=== PATIENT | female | born 1995 | race Hispanic/Latino ===

== ENCOUNTER 2018-05-14 07:46 | Emergency (ER) | payer BC ==
[2018-05-14 08:23] LABS: Urine Blood 1+ (NEG); Urine Glucose NEGATIVE (NEG); Urine Protein 1+ (NEG)
--- NOTE | 2018-05-14 08:51 | EDPHYS ---
Physician Documentation [facility] Name: Deysi Castelan Age: 22 yrs Sex: Female : 1995 Arrival Date: 05/14/2018 Time: 07:50 Bed 15 Private MD: Out, of [facility], [facility] ED Physician Farhan Morales HPI: 05/14 08:36 This 22 yrs old Female presents to ER via Ambulatory with complaints of Flu jr8 Symptoms. 08:36 Patient stated that she has runny nose, sneezing, sinus congestion, fevers, body aches. jr8 Currently . Onset: The symptoms/episode began/occurred suddenly, 1 day(s) ago. Severity of symptoms: At their worst the symptoms were mild in the emergency department the symptoms are unchanged. The patient has not experienced similar symptoms in the past. The patient has not recently seen a physician. ELECTRICAL INTERN: 08:01 unknown, pt reports she is approx 11-12 weeks . ss Historical: - Allergies: 08:01 No Known Allergies; ss - Home Meds: 08:01 "supposed to take iron supplements three times a day" [Active]; ss - PMHx: 08:01 iron deficiency anemia; ss - PSHx: 08:01 None; ss - Immunization history:: Adult Immunizations up to date. - Social history:: Smoking status: Patient/guardian denies using tobacco. - Ebola Screening: : Patient denies exposure to infectious person Patient denies travel to an Ebola-affected area in the 21 days before illness onset. ROS: 08:36 Eyes: Negative for injury, pain, redness, and discharge, Neck: Negative for injury, jr8 pain, and swelling, Cardiovascular: Negative for chest pain, palpitations, and edema, Respiratory: Negative for shortness of breath, cough, wheezing, and pleuritic chest pain, Abdomen/GI: Negative for abdominal pain, nausea, vomiting, diarrhea, and constipation, Back: Negative for injury and pain, MS/Extremity: Negative for injury and deformity, Skin: Negative for injury, rash, and discoloration, Neuro: Negative for headache, weakness, numbness, tingling, and seizure. 08:36 Constitutional: Positive for body aches, chills, fever. 08:36 ENT: Positive for rhinorrhea, sinus congestion, sore throat, Negative for drainage from ear(s), ear pain, nasal discharge, difficulty swallowing, difficulty handling secretions, hoarseness. Exam: 08:36 Eyes: Pupils equal round and reactive to light, extra-ocular motions intact. Lids and jr8 lashes normal. Conjunctiva and sclera are non-icteric and not injected. Cornea within normal limits. Periorbital areas with no swelling, redness, or edema. ENT: Nares patent. No nasal discharge, no septal abnormalities noted. Tympanic membranes are normal and external auditory canals are clear. Oropharynx with no redness, swelling, or masses, exudates, or evidence of obstruction, uvula midline. Mucous membranes moist. Neck: Trachea midline, no thyromegaly or masses palpated, and no cervical lymphadenopathy. Supple, full range of motion without nuchal rigidity, or vertebral point tenderness. No Meningismus. Cardiovascular: Regular rate and rhythm with a normal S1 and S2. No gallops, murmurs, or rubs. Normal PMI, no JVD. No pulse deficits. Respiratory: Lungs have equal breath sounds bilaterally, clear to auscultation and percussion. No rales, rhonchi or wheezes noted. No increased work of breathing, no retractions or nasal flaring. Abdomen/GI: Soft, non-tender, with normal bowel sounds. No distension or tympany. No guarding or rebound. No evidence of tenderness throughout. Back: No spinal tenderness. No costovertebral tenderness. Full range of motion. Skin: Warm, dry with normal turgor. Normal color with no rashes, no lesions, and no evidence of cellulitis. MS/ Extremity: Pulses equal, no cyanosis. Neurovascular intact. Full, normal range of motion. Neuro: Awake and alert, GCS 15, oriented to person, place, time, and situation. Cranial nerves II-XII grossly intact. Motor strength 5/5 in all extremities. Sensory grossly intact. Cerebellar exam normal. Normal gait. Vital Signs: 08:01 BP 103 / 57; Pulse 114; Resp 14; Temp 99.2(O); Pulse Ox 99% on R/A; Weight 104.33 kg; ss Height 5 ft. 3 in. (160.02 cm); Pain 5/10; 09:00 BP 107 / 62; Pulse 111; Resp 20; Temp 99.6(O); Pulse Ox 99% on R/A; Pain 5/10; em 08:01 Body Mass Index 40.74 (104.33 kg, 160.02 cm) ss MDM: 07:55 Patient medically screened. jr8 08:36 Data reviewed: vital signs, nurses notes, lab test result(s), Flu: positive and as a jr8 result, I will discharge patient. Data interpreted: Pulse oximetry: on room air is 99 %. Interpretation: normal. Counseling: I had a detailed discussion with the patient and/or guardian regarding: the historical points, exam findings, and any diagnostic results supporting the discharge/admit diagnosis, lab results, the need for outpatient follow up, a family practitioner, an OB/Gyne specialist, to return to the emergency department if symptoms worsen or persist or if there are any questions or concerns that arise at home. 05/14 08:05 Order name: Flu; Complete Time: 08:50 ss 05/14 08:18 Order name: Urine Dipstick--Ancillary (enter results); Complete Time: 08:26 em1 05/14 08:05 Order name: Urine Dipstick-Ancillary (obtain specimen); Complete Time: 08:16 ss 05/14 08:05 Order name: Urine Test (obtain specimen); Complete Time: 08:16 ss 05/14 08:18 Order name: Urine --Ancillary (enter results); Complete Time: 08:26 em1 Administered Medications: 09:00 Drug: Tamiflu 75 mg Route: PO; em 09:00 Follow up: Response: Medication administered at discharge. em Disposition: 05/15 07:56 Co-signature as Attending Physician, Farhan Morales MD. Disposition: 05/14/18 08:50 Discharged to Home. Impression: Influenza due to certain identified influenza viruses. - Condition is Stable. - Discharge Instructions: Influenza, Adult. - Prescriptions for Tamiflu 75 mg Oral Capsule - take 1 capsule by ORAL route every 12 hours for 5 days; 10 capsule. Zofran 4 mg Oral Tablet - take 1 tablet by ORAL route every 12 hours As needed; 20 tablet. - Medication Reconciliation Form, Thank You Letter, Antibiotic Education, Prescription Opioid Use form. - Follow up: Private Physician; When: 1 week; Reason: Recheck today's complaints, Continuance of care, Re-evaluation by your physician. - Problem is new. - Symptoms are unchanged. Signatures: Dispatcher [employer] EDMS Reji Bro, SHELL GRADER SHELL GRADER em Erika Hunt RN RN Russell Salcido PA PA jr8 Farhan Morales MD MD gs Corrections: (The following items were deleted from the chart) 05/14 09:01 08:50 05/14/2018 08:50 Discharged to Home. Impression: Influenza due to certain em identified influenza viruses. Condition is Stable. Forms are Medication Reconciliation Form, Thank You Letter, Antibiotic Education, Prescription Opioid Use. Follow up: Private Physician; When: 1 week; Reason: Recheck today's complaints, Continuance of care, Re-evaluation by your physician. Problem is new. Symptoms are unchanged. jr8
--- NOTE | 2018-05-14 08:51 | ER ---
Nurse's Notes [facility] Name: Deysi Castelan Age: 22 yrs Sex: Female : 1995 Arrival Date: 05/14/2018 Time: 07:50 Bed 15 Private MD: Out, [facility] Diagnosis: Influenza due to certain identified influenza viruses Presentation: 05/14 07:58 Presenting complaint: Patient states: "I started sneezing yesterday and thought it was ss just allergies, but last night I started having a fever." pt also c/o body aches. Transition of care: patient was not received from another setting of care. Onset of symptoms was May 13, 2018. Risk Assessment: Do you want to hurt yourself or someone else? Patient reports no desire to harm self or others. Initial Sepsis Screen: Does the patient meet any 2 criteria? HR > 90 bpm. Does the patient have a suspected source of infection? No. Patient's initial sepsis screen is negative. Care prior to arrival: Tylenol last taken last night at 2230. 07:58 Method Of Arrival: Ambulatory 07:58 Acuity: PRINCE [address] CUTTER: 08:01 unknown, pt reports she is approx 11-12 weeks . ss Historical: - Allergies: 08:01 No Known Allergies; ss - Home Meds: 08:01 "supposed to take iron supplements three times a day" [Active]; ss - PMHx: 08:01 iron deficiency anemia; ss - PSHx: 08:01 None; ss - Immunization history:: Adult Immunizations up to date. - Social history:: Smoking status: Patient/guardian denies using tobacco. - Ebola Screening: : Patient denies exposure to infectious person Patient denies travel to an Ebola-affected area in the 21 days before illness onset. Screenin:02 Abuse screen: Denies threats or abuse. Denies injuries from another. Nutritional ss screening: No deficits noted. Tuberculosis screening: Never had TB. Fall Risk None identified. Assessment: 08:02 General: Appears in no apparent distress. comfortable, Behavior is calm, cooperative, ss Reports chills for 0-12 hours, fever for since last night. feeling ill for 12-24 hours. Pain: Complains of pain in general body aches Pain currently is 5 out of 10 on a pain scale. Quality of pain is described as aching, Pain began "last night" Is continuous. Neuro: Level of Consciousness is awake, alert, obeys commands, Oriented to person, place, time, situation, Speech is normal, Facial symmetry appears normal, Pupils are PERRLA, Denies dizziness, headache. Cardiovascular: Capillary refill < 3 seconds is brisk in bilateral fingers. Respiratory: Reports sneezing that began yesterday morning Airway is patent Respiratory effort is even, unlabored, Respiratory pattern is regular, symmetrical, Denies cough. GI: Patient currently denies abdominal pain, diarrhea, nausea, vomiting. EENT: Nares are clear Oral mucosa is moist. Throat is clear. Derm: Skin is intact, is healthy with good turgor, Skin is dry, Skin is pink, warm \\T\\ dry. normal. Musculoskeletal: Circulation, motion, and sensation intact. Capillary refill < 3 seconds, is brisk, in bilateral fingers. Range of motion: intact in all extremities, Swelling absent. Vital Signs: 08:01 BP 103 / 57; Pulse 114; Resp 14; Temp 99.2(O); Pulse Ox 99% on R/A; Weight 104.33 kg; Height 5 ft. 3 in. (160.02 cm); Pain 5/10; 09:00 BP 107 / 62; Pulse 111; Resp 20; Temp 99.6(O); Pulse Ox 99% on R/A; Pain 5/10; em 08:01 Body Mass Index 40.74 (104.33 kg, 160.02 cm) ED Course: 07:50 Patient arrived in ED. sb2 07:51 Out, [facility] is Private Physician. sb2 07:55 Russell Wakefield PA is PHCP. jr8 07:55 Farhan Morales MD is Attending Physician. jr8 07:56 Reji Bro LVN is Primary Nurse. em 08:00 Triage completed. 08:01 Arm band placed on right wrist. ss 08:02 Patient has correct armband on for positive identification. Bed in low position. Call light in reach. Side rails up X 1. 08:18 Urine collected: clean catch specimen, clear. 08:26 Flu Sent. [facility] 08:26 Flu and/or RSV swab sent to lab. 5 09:00 No provider procedures requiring assistance completed. Patient did not have IV access em during this emergency room visit. Administered Medications: 09:00 Drug: Tamiflu 75 mg Route: PO; em :00 Follow up: Response: Medication administered at discharge. em Outcome: :50 Discharge ordered by MD. benavides :01 Discharged to home ambulatory. em :01 Condition: good :01 Discharge instructions given to patient, family, Instructed on discharge instructions, follow up and referral plans. medication usage, Demonstrated understanding of instructions, follow-up care, medications, Prescriptions given X 2. 09:01 Patient left the ED. em Signatures: Reji Bro, LIVESTOCK EXHIBITOR LIVESTOCK EXHIBITOR em Erika Hunt, CATARINO RN Russell Salcido PA PA jr8 Chloe Aguilar5 Merle Espinosa2
[2018-05-14] MEDS ORDERED: OSELTAMIVIR 75 MG CAP ONE (08:52)
== END 2018-05-14 09:01 | disposition home or self-care (01) ==
LOC: ER 07:46
DX: J10.1 Influenza due to other identified influenza virus with other respiratory manifestations (principal); O99.011 Anemia complicating pregnancy, first trimester; Z3A.11 11 weeks gestation of pregnancy
CPT/HCPCS: 81003; 81025; 87804; 99283

== ENCOUNTER 2019-05-21 16:35 | Emergency (ER) | payer BC, OTHER ==
[2019-05-21] MEDS ORDERED: CEPHALEXIN 250 MG CAP ONE (17:27)
--- NOTE | 2019-05-21 18:11 | RAD REPORT ---
EXAM DESCRIPTION: RAD - Nasal Bones - 05/21/2019 5:42 pm FINDINGS: A four view nasal bone examination was performed due to history of blunt force trauma. No nasal bone fracture confirmed. Nasal septum is midline. No air-fluid level in the paranasal sinuses.
--- NOTE | 2019-05-21 18:35 | EDPHYS ---
Physician Documentation [facility] Name: Deysi Castelan Age: 23 yrs Sex: Female : 1995 Arrival Date: 05/21/2019 Time: 16:38 Bed 30 Private MD: ED Physician Ramesh Pickett HPI: 05/21 17:32 This 23 yrs old Female presents to ER via Ambulatory with complaints of Fall snw Injury, Facial Injury. 17:32 Details of fall: The patient fell from a height, tailgate, from seated position, fell snw off tailgate onto face. Onset: The symptoms/episode began/occurred suddenly, yesterday. Associated injuries: The patient sustained injury to the abdomen, specifically the face, Severity of symptoms: At their worst the symptoms were mild, moderate. The patient has not experienced similar symptoms in the past. It is unknown whether or not the patient has recently seen a physician. denies loc, neck pain. GEOLOGY TECHNICIAN: 16:45 LMP 04/06/2019 hj Historical: - Allergies: 16:44 No Known Allergies; hj - Home Meds: 17:24 "supposed to take iron supplements three times a day" [Active]; mg2 - PMHx: 16:44 IRON DEFICIENCY ANEMIA; hj - PSHx: 16:44 ; Tubal ligation; Cholecystectomy; hj - Immunization history:: Flu vaccine status is unknown. - Social history:: Smoking status: unknown. - Ebola Screening: : No symptoms or risks identified at this time. ROS: 17:31 Constitutional: Negative for fever, chills, and weight loss, Eyes: Negative for injury, snw pain, redness, and discharge, Neck: Negative for injury, pain, and swelling, Cardiovascular: Negative for chest pain, palpitations, and edema, Respiratory: Negative for shortness of breath, cough, wheezing, and pleuritic chest pain, Abdomen/GI: Negative for abdominal pain, nausea, vomiting, diarrhea, and constipation, Back: Negative for injury and pain, : Negative for injury, bleeding, discharge, and swelling, MS/Extremity: Negative for injury and deformity, Skin: Negative for injury, rash, and discoloration, Neuro: Negative for headache, weakness, numbness, tingling, and seizure. 17:31 ENT: Positive for injury or acute deformity, contusion. Exam: 17:26 Constitutional: This is a well developed, well nourished patient who is awake, alert, snw and in no acute distress. Eyes: Pupils equal round and reactive to light, extra-ocular motions intact. Lids and lashes normal. Conjunctiva and sclera are non-icteric and not injected. Cornea within normal limits. Periorbital areas with no swelling, redness, or edema. Neck: Trachea midline, no thyromegaly or masses palpated, and no cervical lymphadenopathy. Supple, full range of motion without nuchal rigidity, or vertebral point tenderness. No Meningismus. Chest/axilla: Normal chest wall appearance and motion. Nontender with no deformity. No lesions are appreciated. Cardiovascular: Regular rate and rhythm with a normal S1 and S2. No gallops, murmurs, or rubs. Normal PMI, no JVD. No pulse deficits. Respiratory: Lungs have equal breath sounds bilaterally, clear to auscultation and percussion. No rales, rhonchi or wheezes noted. No increased work of breathing, no retractions or nasal flaring. Abdomen/GI: Soft, non-tender, with normal bowel sounds. No distension or tympany. No guarding or rebound. No evidence of tenderness throughout. Back: No spinal tenderness. No costovertebral tenderness. Full range of motion. Skin: Warm, dry with normal turgor. Normal color with no rashes, no lesions, and no evidence of cellulitis. MS/ Extremity: Pulses equal, no cyanosis. Neurovascular intact. Full, normal range of motion. Neuro: Awake and alert, GCS 15, oriented to person, place, time, and situation. Cranial nerves II-XII grossly intact. Motor strength 5/5 in all extremities. Sensory grossly intact. Cerebellar exam normal. Normal gait. Psych: Awake, alert, with orientation to person, place and time. Behavior, mood, and affect are within normal limits. 17:26 ENT: Nose: External nose: contusion is noted, Nasal septum: no septal hematoma appreciated, Mouth: is normal, Lips: central upper lip with edema, contusion, no laceration, Dental exam: Altered sensation to left central incisor . Vital Signs: 16:45 BP 102 / 57; Pulse 71; Resp 18; Temp 98.1(O); Pulse Ox 100% on R/A; Weight 97.52 kg; hj Height 5 ft. 3 in. (160.02 cm); Pain 6/10; 18:56 BP 105 / 60; Pulse 72; Resp 18; Temp 98; Pulse Ox 100% on R/A; Pain 0/10; mg2 16:45 Body Mass Index 38.08 (97.52 kg, 160.02 cm) hj MDM: 17:03 Patient medically screened. snw 18:35 Data reviewed: vital signs, nurses notes. Data interpreted: Pulse oximetry: on room air snw is 100 %. Interpretation: normal. Counseling: I had a detailed discussion with the patient and/or guardian regarding: the historical points, exam findings, and any diagnostic results supporting the discharge/admit diagnosis, radiology results, the need for outpatient follow up, to return to the emergency department if symptoms worsen or persist or if there are any questions or concerns that arise at home. Special discussion: Based on the patient's history, exam and DX evaluation, there is no indication for emergent intervention or inpatient TX. It is understood by the patient/guardian that if the SXs persist or worsen they need to return immediately for re-evaluation. Based on the history and exam findings, there is no indication for further emergent testing or inpatient evaluation. I discussed with the patient/guardian the need to see the primary care provider for further evaluation of the symptoms. 05/21 17:11 Order name: Nasal Bones; Complete Time: 18:13 EDMS Administered Medications: 17:15 Drug: KeFLEX 500 mg Route: PO; mg2 18:11 Follow up: Response: No adverse reaction; Marked relief of symptoms mg2 Disposition: 05/22 07:04 Co-signature as Attending Physician, Ramesh Pickett MD. rn Disposition: 05/21/19 18:34 Discharged to Home. Impression: Contusion of unspecified part of head - face, Fall (on) (from) unspecified stairs and steps, Superficial injury of head. - Condition is Stable. - Discharge Instructions: Nosebleed, Adult, Facial or Scalp Contusion, Head Injury, Adult, Fall Prevention in the Home. - Prescriptions for Keflex 500 mg Oral Capsule - take 1 capsule by ORAL route every 8 hours for 10 days; 30 capsule. orphenadrine citrate 100 mg Oral Tablet Sustained Release - take 1 tablet by ORAL route 2 times per day As needed; 20 tablet. - Medication Reconciliation Form, Thank You Letter, Antibiotic Education, Prescription Opioid Use form. - Follow up: Emergency Department; When: As needed; Reason: Worsening of condition. Follow up: Private Physician; When: 2 - 3 days; Reason: Recheck today's complaints, Continuance of care, Re-evaluation by your physician. Signatures: Dispatcher [employer] [facility] Antonina Wolf, FOOD EXPEDITOR-C FOOD EXPEDITOR-Csnw Ramesh Pickett MD MD rn Joaquin, Henry, RN RN hj Gardose, Michele, RN RN mg2 Corrections: (The following items were deleted from the chart) 05/21 17:16 17:08 Nasal Bones+RAD.RAD.BRZ ordered. [facility] 18:58 18:34 05/21/2019 18:34 Discharged to Home. Impression: Contusion of unspecified part of mg2 head - face; Fall (on) (from) unspecified stairs and steps; Superficial injury of head. Condition is Stable. Forms are Medication Reconciliation Form, Thank You Letter, Antibiotic Education, Prescription Opioid Use. Follow up: Emergency Department; When: As needed; Reason: Worsening of condition. Follow up: Private Physician; When: 2 - 3 days; Reason: Recheck today's complaints, Continuance of care, Re-evaluation by your physician. snw
--- NOTE | 2019-05-21 18:35 | ER ---
Nurse's Notes [facility] Name: Deysi Castelan Age: 23 yrs Sex: Female : 1995 Arrival Date: 05/21/2019 Time: 16:38 Bed 30 Private MD: Diagnosis: Contusion of unspecified part of head-face;Fall (on) (from) unspecified stairs and steps;Superficial injury of head Presentation: 05/21 16:42 Presenting complaint: Patient states: i fell last night, face forward and hurt my face hj and today i feel like my vision is slow motion; denies N/V; denies LOC; reports headache;. Transition of care: patient was not received from another setting of care. Onset of symptoms was May 21, 2019. Risk Assessment: Do you want to hurt yourself or someone else? Patient reports no desire to harm self or others. Initial Sepsis Screen: Does the patient meet any 2 criteria? No. Patient's initial sepsis screen is negative. Does the patient have a suspected source of infection? No. Patient's initial sepsis screen is negative. Care prior to arrival: None. 16:42 Method Of Arrival: Ambulatory 16:42 Acuity: PRINCE 3 EVP BUSINESS DEVELOPMENT: 16:45 LMP 04/06/2019 Historical: - Allergies: 16:44 No Known Allergies; hj - Home Meds: 17:24 "supposed to take iron supplements three times a day" [Active]; mg2 - PMHx: 16:44 IRON DEFICIENCY ANEMIA; hj - PSHx: 16:44 ; Tubal ligation; Cholecystectomy; hj - Immunization history:: Flu vaccine status is unknown. - Social history:: Smoking status: unknown. - Ebola Screening: : No symptoms or risks identified at this time. Screenin:19 Abuse screen: Denies threats or abuse. Denies injuries from another. Nutritional mg2 screening: No deficits noted. Tuberculosis screening: No symptoms or risk factors identified. Fall Risk Fall in past 12 months (25 points). Assessment: 17:19 General: Appears in no apparent distress. comfortable, Behavior is calm, cooperative. mg2 Pain: Complains of pain in face Pain does not radiate. Pain currently is 2 out of 10 on a pain scale. Quality of pain is described as aching, Pain began suddenly, 1 day ago. Is intermittent. Neuro: Level of Consciousness is awake, alert, obeys commands, Oriented to person, place, time, situation. Cardiovascular: Capillary refill < 3 seconds Patient's skin is warm and dry. Respiratory: Airway is patent Respiratory effort is even, unlabored, Respiratory pattern is regular, symmetrical. GI: No signs and/or symptoms were reported involving the gastrointestinal system. : No signs and/or symptoms were reported regarding the genitourinary system. EENT: No signs and/or symptoms were reported regarding the EENT system. Derm: Skin is intact, is healthy with good turgor, Skin is pink, warm \\T\\ dry. normal. Derm: Wound noted face. Musculoskeletal: Circulation, motion, and sensation intact. Capillary refill < 3 seconds. Injury Description: Abrasion sustained to face. 18:57 Reassessment: Patient appears in no apparent distress at this time. mg2 Vital Signs: 16:45 BP 102 / 57; Pulse 71; Resp 18; Temp 98.1(O); Pulse Ox 100% on R/A; Weight 97.52 kg; hj Height 5 ft. 3 in. (160.02 cm); Pain 6/10; 18:56 BP 105 / 60; Pulse 72; Resp 18; Temp 98; Pulse Ox 100% on R/A; Pain 0/10; mg2 16:45 Body Mass Index 38.08 (97.52 kg, 160.02 cm) ED Course: 16:38 Patient arrived in ED. mr 16:44 Triage completed. hj 16:44 Arm band placed on left wrist. hj 16:50 Antonina Wolf FNP-C [facility]. sn 16:50 Ramesh Pickett MD is Attending Physician. snw 17:10 Abdirizak Juan, CATARINO is Primary Nurse. mg2 17:19 No provider procedures requiring assistance completed. Patient did not have IV access mg2 during this emergency room visit. 17:23 Patient has correct armband on for positive identification. mg2 17:39 Nasal Bones In Process Unspecified. EDMS Administered Medications: 17:15 Drug: KeFLEX 500 mg Route: PO; mg2 18:11 Follow up: Response: No adverse reaction; Marked relief of symptoms mg2 Outcome: 18:34 Discharge ordered by . snw 18:57 Discharged to home ambulatory, with family. mg2 18:57 Condition: stable 18:57 Discharge instructions given to patient, family, Instructed on discharge instructions, follow up and referral plans. medication usage, Demonstrated understanding of instructions, follow-up care, medications, Prescriptions given X 2. 18:58 Patient left the ED. mg2 Signatures: Dispatcher [employer] EDMS Antonina Wolf, JERICA FIRE APPARATUS SPRINKLER INSPECTOR-Fahad Melinda Burgos Alvin Caal RN RN hj Gardose, Michele, RN RN mg2 Corrections: (The following items were deleted from the chart) 16:47 16:45 Pulse 71bpm; Resp 18bpm; Pulse Ox 100% RA; Temp 98.1F Oral; 97.52 kg; Height 5 hj ft. 3 in.; BMI: 38.0; Pain 6/10; hj
== END 2019-05-21 18:58 | disposition home or self-care (01) ==
LOC: ER 16:35
DX: S00.83XA Contusion of other part of head, initial encounter (principal); W17.89XA Other fall from one level to another, initial encounter; Y93.9 Activity, unspecified; Y92.9 Unspecified place or not applicable
CPT/HCPCS: 70160; 99283